=== PATIENT | male | born 1980 | race Caucasian/White ===

== ENCOUNTER 2024-03-25 14:56 | Inpatient (IN) | payer BC ==
[~2024-03-25] VITALS: Ht 175.3 cm; Wt 79.5 kg
[2024-03-25] MEDS: HYDROmorphone 1 mg/ml syringe IV ONE ×2 (15:31→15:49)
[2024-03-25] MEDS: ondansetron/PF 4mg/2ml inj IV ONE (15:31)
[2024-03-25] MEDS: normal saline 1000ml 1,000 ML IV ONE (15:31)
[2024-03-25 15:38] LABS: BASOPHILS # (AUTO) 0.1 X10'3 (0-0.2); BASOPHILS % (AUTO) 1.1 % (0-1); EOSINOPHILS # (AUTO) 0.1 X10'3 (0-0.9); EOSINOPHILS % (AUTO) 1.6 % (0-6); HEMOGLOBIN 16.3 g/dl (14.0-17.9); LYMPHOCYTES # (AUTO) 2.6 X10'3 (1.1-4.8); MEAN CORPUSCULAR HEMOGLOBIN 31.2 PG (27.0-31.0); MEAN CORPUSCULAR HGB CONC 34.7 g/dL (33.0-36.5); MEAN PLATELET VOLUME 7.5 FL (7.4-10.4); MONOCYTES # (AUTO) 0.7 X10'3 (0-0.9); MONOCYTES % (AUTO) 12.1 % (2-12); NEUTROPHILS # (AUTO) 2.1 X10'3 (1.8-7.7); NEUTROPHILS % (AUTO) 38.2 % (42-75); PLATELET COUNT 196 X10'3 (140-440); RED BLOOD COUNT 5.22 X10'6 (4.70-6.10); RED CELL DISTRIBUTION WIDTH 12.8 % (11.5-14.5); WHITE BLOOD COUNT 5.5 X10'3 (4.5-11.0)
[2024-03-25 15:52] LABS: ALANINE AMINOTRANSFERASE 29 U/L (12-78); ALBUMIN 4.1 G/DL (3.4-5.0); ALBUMIN/GLOBULIN RATIO 1.2 (1.1-1.5); ALKALINE PHOSPHATASE 40 IU/L (46-116); ANION GAP 14 (8-16); ASPARTATE AMINO TRANSFERASE 20 U/L (10-37); BILIRUBIN,TOTAL 0.8 MG/DL (0.1-1.0); BLOOD UREA NITROGEN 22 MG/DL (7-18); BUN/CREATININE RATIO 17.3 (10.0-20.0); CHLORIDE 102 MMOL/L (99-107); CREATININE 1.27 MG/DL (0.60-1.10); GLUCOSE 102 MG/DL (70-104); LIPASE 29 U/L (16-77); POTASSIUM 3.4 MMOL/L (3.5-5.1); SODIUM 139 MMOL/L (135-145); TOTAL CARBON DIOXIDE 23.1 MMOL/L (24-32); TOTAL PROTEIN 7.4 G/DL (6.4-8.2); eCRCL 75 ML/MIN; eGFR 62 ML/MIN
[2024-03-25] MEDS ORDERED: iohexol 300mg/ml 100ml inj. ONE (15:54)
[2024-03-25 15:58] LABS: CALCIUM 8.9 MG/DL (8.5-10.1)
[2024-03-25] MEDS ORDERED: bisacodyl 10mg suppository rectal RC STA (17:24)
[2024-03-25 17:25] LABS: BILIRUBIN,URINE NEGATIVE (Neg); CLARITY,URINE CLEAR (Clear); COLOR,URINE YELLOW (Yellow); GLUCOSE, URINE NEGATIVE (Neg); KETONES,URINE TRACE mg/dl (Neg); LEUKOCYTE ESTERASE ,URINE NEGATIVE (Neg); NITRITES, URINE NEGATIVE (Neg); OCCULT BLOOD,URINE NEGATIVE (Neg); PROTEIN,URINE NEGATIVE (Neg); UROBILINOGEN,URINE 0.2 E.U/dL (0.2-1.0)
[2024-03-25] MEDS ORDERED: magnesium sulf-water 4G/100mL 100 ML IV PRN (17:25)
[2024-03-25] MEDS ORDERED: potassium Cl 20 mEq SR tablet PO PRN ×2 (17:25)
[2024-03-25] MEDS ORDERED: acetaminophen 325mg tablet PO PRN (17:25)
[2024-03-25] MEDS ORDERED: HYDROcodone/acetaminophen 10/325mg tab PO PRN (17:25)
[2024-03-25] MEDS ORDERED: magnesium sulf-water 2g/50mL 50 ML IV PRN (17:25)
[2024-03-25] MEDS ORDERED: magnesium Cl slow-release 64mg tablet PO PRN (17:25)
[2024-03-25] MEDS ORDERED: morphine 2 MG/ML inj. syringe IV PRN ×2 (17:25)
[2024-03-25] MEDS ORDERED: ondansetron/PF 4mg/2ml inj IV PRN (17:25)
[2024-03-25] MEDS ORDERED: ondansetron 4mg rapidly disintigrating tab PO PRN (17:25)
[2024-03-25] MEDS ORDERED: metoclopramide 5 mg/ml inj IV PRN (17:25)
[2024-03-25] MEDS ORDERED: potassium Cl 40MEQ/1/2NS 520ml 520 ML IV PRN (17:25)
[2024-03-25] MEDS ORDERED: HYDROcodone/acetaminophen 5mg/325mg tablet PO PRN (17:25)
[2024-03-25 17:27] LABS: UA COLLECTION TYPE VOIDED
[2024-03-25] MEDS: ciprofloxacin lact 400MG/200ML 200 ML IV SCH (18:01)
[2024-03-25] MEDS ORDERED: LORazepam 1 MG tablet PO PRN (19:00)
[2024-03-25] MEDS ORDERED: LORazepam 2 mg/ml vial IV PRN (19:00)
[2024-03-25] MEDS: metroNIDAZOLE-Flagyl 500mg/NS 100 ML IV SCH (19:35)
[2024-03-25] MEDS: normal saline 1000ml 1,000 ML IV SCH (19:37)
[2024-03-25 21:30] VITALS: BP 107/61; PULSE 55; RESP 16; TEMP 97.9; O2SAT 97
[2024-03-25] MEDS: heparin, porcine 5000 units/ml vial SQ SCH (21:30)
[2024-03-25] MEDS: pantoprazole 40mg Tablet.DR PO SCH (21:52)
[2024-03-25] MEDS: diatr meglu/diatrizoate 30ml oral sol.-(3 dose) bottle PO SCH (21:53)
[2024-03-26] MEDS ORDERED: NO HOME MEDS (03:14)
[2024-03-26 06:35] LABS: BASOPHILS % (AUTO) 0.6 % (0-1); EOSINOPHILS # (AUTO) 0.1 X10'3 (0-0.9); EOSINOPHILS % (AUTO) 1.7 % (0-6); HEMOGLOBIN 14.4 g/dl (14.0-17.9); LYMPHOCYTES # (AUTO) 1.9 X10'3 (1.1-4.8); MEAN CORPUSCULAR HEMOGLOBIN 31.1 PG (27.0-31.0); MEAN CORPUSCULAR HGB CONC 34.4 g/dL (33.0-36.5); MEAN CORPUSCULAR VOLUME 90.6 FL (78-98); MEAN PLATELET VOLUME 7.6 FL (7.4-10.4); MONOCYTES # (AUTO) 0.7 X10'3 (0-0.9); MONOCYTES % (AUTO) 12.1 % (2-12); NEUTROPHILS # (AUTO) 2.8 X10'3 (1.8-7.7); NEUTROPHILS % (AUTO) 50.6 % (42-75); PLATELET COUNT 166 X10'3 (140-440); RED BLOOD COUNT 4.64 X10'6 (4.70-6.10); RED CELL DISTRIBUTION WIDTH 12.8 % (11.5-14.5); WHITE BLOOD COUNT 5.5 X10'3 (4.5-11.0)
[2024-03-26 07:04] LABS: ALANINE AMINOTRANSFERASE 22 U/L (12-78); ALBUMIN 3.1 G/DL (3.4-5.0); ALBUMIN/GLOBULIN RATIO 1.1 (1.1-1.5); ALKALINE PHOSPHATASE 31 IU/L (46-116); ANION GAP 8 (8-16); ASPARTATE AMINO TRANSFERASE 14 U/L (10-37); BILIRUBIN,TOTAL 1.1 MG/DL (0.1-1.0); BLOOD UREA NITROGEN 14 MG/DL (7-18); BUN/CREATININE RATIO 13.1 (10.0-20.0); CALCIUM 7.8 MG/DL (8.5-10.1); CHLORIDE 105 MMOL/L (99-107); CREATININE 1.07 MG/DL (0.60-1.10); GLUCOSE 96 MG/DL (70-104); POTASSIUM 4.3 MMOL/L (3.5-5.1); SODIUM 140 MMOL/L (135-145); TOTAL CARBON DIOXIDE 27.5 MMOL/L (24-32); TOTAL PROTEIN 5.8 G/DL (6.4-8.2); eCRCL 89 ML/MIN; eGFR 75 ML/MIN
[2024-03-26 07:56] VITALS: BP 111/69; PULSE 56; RESP 14; TEMP 97.9; O2SAT 95
[2024-03-26 08:00] VITALS: RESP 14; O2SAT 98
[2024-03-26] MEDS: acetaminophen 325mg tablet PO PRN (10:35)
[2024-03-26 11:00] VITALS: BP 118/69; PULSE 60; RESP 18; TEMP 97.7; O2SAT 97
[2024-03-26] MEDS ORDERED: ACET-1008 PO (14:27)
[2024-03-26] MEDS ORDERED: PANT40TA54 PO (14:27)
== END 2024-03-26 14:32 | disposition home or self-care (01) | DRG 392 ==
LOC: ER 14:57 → ED HOLD 17:32 → UNDOADMIN 17:32 → ED HOLD 19:17 → ORTHO 4S 21:15 → ED HOLD 21:15 → ORTHO 4S 03-26 09:47
PROVIDERS: ADMIT Internal Medicine; ATTEND Internal Medicine
PROC: BW251ZZ Computerized Tomography (CT Scan) of Chest, Abdomen and Pelvis using Low Osmolar Contrast (ICD-10-PCS; principal; 2024-03-25)
DX: K21.9 Gastro-esophageal reflux disease without esophagitis (principal); K56.609 Unspecified intestinal obstruction, unspecified as to partial versus complete obstruction; N17.9 Acute kidney failure, unspecified; E87.6 Hypokalemia; F10.90 Alcohol use, unspecified, uncomplicated
CPT/HCPCS: 36415; 71260; 74176; 74177; 80053; 81003; 83605; 83690; 84145; 85025; 87040; 87081; 93005; 93306; 96374; 96375; 99285; G0378; J0744; J1171; J2405; J3490; J7030; Q9963; Q9967